=== PATIENT | female | born 1980 | race Two or more races ===

== ENCOUNTER 2022-01-13 21:29 | Emergency (ER) | payer MEDICAID ==
[~2022-01-13] VITALS: Ht 162.6 cm; Wt 73.9 kg
[2022-01-13] MEDS ORDERED: ONDANSETRON HCL/PF 4 MG/2 ML VIAL IVP ONE (22:30)
[2022-01-13] MEDS ORDERED: MORPHINE SULFATE INJ 2 MG/ML DISP.SYRIN IV ONE (22:30)
--- NOTE | 2022-01-13 22:52 | NUR ---
BIBFAMILY C/O RIGHT SIDE ABD PAIN STARTED IN THE MORNING. TOOK IBUPROFEN WITH MINIMAL RELIEF IN THE AM. ALSO REPORTS NASUEA WITH AN EPISODE OF VOMITING. PAIN 8/10 RADIATING TO FLANK. DENIES ANY FEVER OR PAINFUL URINATION. AWAKE AND ALERT X4 BREATHING UNLABORED. CHANGED INTO GOWN AND PLACED ON MONITOR AND V/S WNL. MD WAS AT BEDSIDE FOR EVAL.
[2022-01-13] MEDS ORDERED: ONDANSETRON HCL/PF 4 MG/2 ML VIAL ONE (22:54)
[2022-01-13] MEDS ORDERED: MORPHINE SULFATE INJ 4 MG/ML DISP.SYRIN ONE (22:54)
--- NOTE | 2022-01-13 23:00 | NUR ---
20G IC ESTABLISHED AT [facility]. BLOOD DRAWN AND SENT TO LAB.
[2022-01-13 23:03] LABS: BASOPHILS % (AUTO) 0.4 % (0.0-2.0); EOSINOPHILS % (AUTO) 0.5 % (0.0-6.0); HEMATOCRIT 38 % (33-45); HEMOGLOBIN 12.5 g/dL (11.5-14.8); LYMPHOCYTES # (AUTO) 2.4 K/uL (0.8-4.8); LYMPHOCYTES % (AUTO) 28.2 % (20.0-44.0); MEAN CORPUSCULAR HGB CONC 33 g/dl (31.0-36.0); MEAN CORPUSCULAR VOLUME 88 fL (82-100); MONOCYTES # (AUTO) 0.5 K/uL (0.1-1.30); MONOCYTES % (AUTO) 6.2 % (2.0-12.0); NEUTROPHILS # (AUTO) 5.6 K/uL (1.8-8.9); NEUTROPHILS % (AUTO) 64.7 % (43.0-81.0); PLATELET COUNT (AUTO) 246 K/uL (150-450); RED BLOOD CELL COUNT(AUTO) 4.29 MIL/uL (4.0-5.2); WHITE BLOOD COUNT (AUTO) 8.7 K/uL (4.3-11.0)
[2022-01-13 23:20] LABS: BILIRUBIN,URINE NEGATIVE (NEGATIVE); COLOR,URINE YELLOW (YELLOW); LEUKOCYTE ESTERASE ,URINE TRACE (NEGATIVE); NITRITE, URINE NEGATIVE (NEGATIVE); PH,URINE 5.5 (5.0-8.0); PROTEIN,URINE TRACE mg/dl (NEGATIVE); UGLUCOSE NEGATIVE (NEGATIVE); UROBILINOGEN,URINE 0.2 EU/dL (0.2)
[2022-01-13 23:23] LABS: CREATININE 1.1 mg/dL (0.6-1.3); POTASSIUM 4.1 mmol/L (3.5-5.1)
[2022-01-13 23:25] LABS: ALBUMIN 3.9 g/dL (3.4-5.0); BILIRUBIN,DIRECT 0.1 mg/dL (0.0-0.2); BILIRUBIN,TOTAL 0.5 mg/dL (0.2-1.0); TOTAL PROTEIN, SERUM 7.6 g/dL (6.4-8.2)
[2022-01-13 23:29] LABS: BACTERIA,URINE Few /HPF (None Seen); SQUAMOUS EPITHELIAL CELL,UR Moderate /HPF (None Seen); WBC,URINE 0-2 /HPF (0-3)
[2022-01-14] MEDS ORDERED: MORPHINE SULFATE INJ 4 MG/ML DISP.SYRIN ONE (02:42)
[2022-01-14] MEDS ORDERED: MORPHINE SULFATE INJ 2 MG/ML DISP.SYRIN IV ONE (03:00)
[2022-01-14] MEDS ORDERED: ONDA4TAB11 PO (04:17)
[2022-01-14] MEDS ORDERED: NABU-141 PO (04:17)
[2022-01-14] MEDS ORDERED: TAMS-12 PO (04:17)
--- NOTE | 2022-01-14 04:42 | NUR ---
Patient discharged to home in stable condition. Written and verbal after care instructions given. Patient verbalizes understanding of instruction.IV removed. Catheter intact and site benign. Pressure and 4x4 applied to site. No bleeding noted.
[2022-01-14 04:50] VITALS: BP 139/89
== END 2022-01-14 04:50 | disposition home or self-care (01) ==
LOC: ER 21:34
DX: N20.0 Calculus of kidney (principal); R10.31 Right lower quadrant pain; R11.2 Nausea with vomiting, unspecified; Z87.42 Personal history of other diseases of the female genital tract
CPT/HCPCS: 99284; 74176; 96374; 96375; 85025; 80048; 83690; 80076; 84703; 81001; 36415; 96376; J2270 ×2; J2405